=== PATIENT | female | born 2000 | race Caucasian/White ===

== ENCOUNTER 2024-07-05 11:33 | Emergency (ER) | payer BC ==
[~2024-07-05] VITALS: Ht 165.1 cm; Wt 77.1 kg
[2024-07-05] MEDS ORDERED: JUNEL 1 MG-201 EACH PO (11:47)
[2024-07-05] MEDS ORDERED: Ketorolac Tromethamine 60 MG/2 ML VIAL IM ONE (12:15)
[2024-07-05] MEDS ORDERED: NAPROXEN250 MG PO (12:17)
== END 2024-07-05 12:39 | disposition home or self-care (01) ==
LOC: ED 11:33
DX: S93.402A Sprain of unspecified ligament of left ankle, initial encounter (principal); S93.602A Unspecified sprain of left foot, initial encounter; S90.02XA Contusion of left ankle, initial encounter; S90.32XA Contusion of left foot, initial encounter; X50.3XXA Overexertion from repetitive movements, initial encounter; Y93.89 Activity, other specified; Y92.009 Unspecified place in unspecified non-institutional (private) residence as the place of occurrence of the external cause; Y99.8 Other external cause status